=== PATIENT | male | born 1975 | race Two or more races ===

== ENCOUNTER 2021-07-06 08:20 | Outpatient (REF) | payer MEDICAID, SELFPAY ==
--- NOTE | 2021-07-06 08:34 | EMG_ITS ---
This is a 46-year-old man with several year history of bilateral upper extremity pain and numbness. His neurological examination is normal. No Tinel or Phalen sign. IMPRESSION: Rule out carpal tunnel syndrome. Nerve conduction EMG study: Early carpal tunnel syndrome on the left, otherwise normal study of the upper extremities. Normal EMG of the left C5-T1 innervated muscles. MD EDY Awad/BART / [id number]
== END 2021-07-06 08:21 | disposition home or self-care (01) ==
LOC: HO.NEURO 08:20
PROVIDERS: Visit Provider Internal Medicine
DX: R20.0 Anesthesia of skin (principal)
CPT/HCPCS: 95885; 95913

== ENCOUNTER 2021-10-03 17:13 | Outpatient (REF) | payer MEDICAID, SELFPAY ==
--- NOTE | ~2021-10-03 | XR_ITS ---
EXAMINATION: XR CERVICAL SPINE CLINICAL INFORMATION: Radiculopathy COMPARISON: None TECHNIQUE: 5 views of the cervical spine were obtained. FINDINGS: Bone alignment is normal. No fracture or dislocation is seen. There is mild degenerative spondylosis at CC4-C5 and C5-C6. Disc spaces are normal. There is right-sided neuroforaminal narrowing from bony osteophyte from C2-C3 to C4-C5. Evaluation for left-sided neuroforaminal narrowing is limited due to patient positioning. There is question of left-sided neuroforaminal narrowing from bony osteophyte at C3-C4 and C4-C5. Prevertebral soft tissues are normal.. XR/XR cervical spine 4V IMPRESSION: Mild degenerative spondylosis at C4-C5 and C5-C6. Bilateral neuroforaminal narrowing from bony osteophyte.
== END 2021-10-03 17:14 | disposition home or self-care (01) ==
LOC: HO.XRAY 17:13
PROVIDERS: PCP Internal Medicine; Visit Provider Internal Medicine
DX: M54.12 Radiculopathy, cervical region (principal)
CPT/HCPCS: 72050

== ENCOUNTER 2021-10-17 13:38 | Outpatient (REF) | payer MEDICAID, SELFPAY ==
--- NOTE | ~2021-10-17 | XR_ITS ---
EXAMINATION: XR ANKLE, LEFT CLINICAL INFORMATION: Pain. COMPARISON: None TECHNIQUE: AP, lateral, and mortise views of the left ankle. FINDINGS: Bony alignment and mineralization are normal. There are old, healed fractures of the distal left tibia and fibula, with bony remodeling. The distal aspect of a tibial intramedullary césar is noted, with intact fixator screws. No hardware failure or loosening is seen. The ankle mortise is intact. No acute fracture, dislocation or left ankle joint effusion is seen. Boehler's angle is normal. There is a very small posterior calcaneal spur. The soft tissue planes are unremarkable, without foreign body. XR/XR ankle LT min 3V IMPRESSION: There are old, healed distal left tibial and fibular fractures noted, with extensive bony remodeling. An intact left tibial intramedullary césar is noted, without hardware failure or loosening seen at the included distal aspect. No acute fracture or dislocation is seen. There is no left ankle joint effusion.
== END 2021-10-17 13:39 | disposition home or self-care (01) ==
LOC: HO.HOSX 13:38
PROVIDERS: Visit Provider Orthopaedic Surgery
DX: M54.12 Radiculopathy, cervical region (principal); M25.572 Pain in left ankle and joints of left foot; Z96.9 Presence of functional implant, unspecified
CPT/HCPCS: 73610; 99202

== ENCOUNTER → 2021-11-07 13:36 | Outpatient (BNVA) | payer MEDICAID, SELFPAY | PROVIDERS: PCP Internal Medicine; Visit Provider Nurse Practitioner Family | DX: M62.838 Other muscle spasm (principal); M54.12 Radiculopathy, cervical region; M47.816 Spondylosis without myelopathy or radiculopathy, lumbar region; M79.641 Pain in right hand; M79.642 Pain in left hand; G56.02 Carpal tunnel syndrome, left upper limb | CPT/HCPCS: 99202 ==

== ENCOUNTER 2021-11-09 10:19 | Day surgery (SDC) | payer MEDICAID, SELFPAY ==
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
[2021-11-09] VITALS (9 sets, daily range): BP systolic 117–142; BP diastolic 75–100; PULSE 58–65; RESP 16–18; TEMP 36.7–36.8; O2SAT 97–98; BMI 28.7
[2021-11-09] MEDS: Lactated Ringers 1,000 ML 100 ML IVCONT (10:47)
--- NOTE | 2021-11-09 10:47 | PC.NURSE ---
pt refuses to have hospital bracelet on wrist. bracelet is on right ankle.
[2021-11-09] MEDS: fentaNYL citrate/PF 100 MCG/2 ML VIAL 50 MCG IVPUSH (13:32)
[2021-11-09] MEDS: oxyCODONE HCl Immed Release 5 MG TABLET 10 MG PO (13:33)
--- NOTE | 2021-11-09 15:15 | P.BOP_ITS ---
Brief Operative Note Date of Service: 11/09/21 Pre-op diagnosis: Retained ortho hardware left tibia Post-op diagnosis: same Procedure: failed removal of hardware left tibia Surgeon: Shen Yi MD Anesthesia: MAC and local Was an [employer] Mdm Developer used for this Procedure?: No Estimated blood loss (mL): 5 IV fluids (mL): 250 Pathology: none sent Condition: stable Disposition: PACU
--- NOTE | 2021-11-11 14:08 | P.OP_ITS ---
Operative Note Operative Note Date of Service: 11/09/21 Narrative: Date of Service: 11/09/21 Pre-op diagnosis: Retained ortho hardware left tibia Post-op diagnosis: same Procedure: failed removal of hardware left tibia Surgeon: Shen Yi MD Anesthesia: MAC and local Was an Metal Model Maker used for this Procedure?: No Estimated blood loss (mL): 5 IV fluids (mL): 250 Pathology: none sent Condition: stable Disposition: PACU Procedure in detail: Patient was brought to the operating room placed supine on the operative table and prepped and draped in standard sterile fashion. A time-out was called to identify proper site proper procedure and proper surgeon and IV antibiotics per weight were administered. I began by injecting approximately 5 mL of 0.25% Marcaine over the distal medial tibia at the location of the screws to be removed. I then made a 1 cm incision over the palpable screw head. I then placed the appropriate screwdriver and attempted to remove the screw. This screw head was stripped and this was difficult. The decision was made not to continue as I had discussed with him that if the screw was stripped I was not going to go through heroic measures to remove it given his relatively mild symptoms. I then irrigated and closed with absorbable suture and 2 shane
== END 2021-11-09 14:58 | disposition home or self-care (01) ==
LOC: HO.SSS 10:19
PROVIDERS: PCP Internal Medicine; Visit Provider Orthopaedic Surgery
PROC: (CPT 20680; principal; 2021-11-09 12:50)
DX: T84.84XA Pain due to internal orthopedic prosthetic devices, implants and grafts, initial encounter (principal); Z47.2 Encounter for removal of internal fixation device; M79.662 Pain in left lower leg; Y79.2 Prosthetic and other implants, materials and accessory orthopedic devices associated with adverse incidents; G89.18 Other acute postprocedural pain; Y83.8 Other surgical procedures as the cause of abnormal reaction of the patient, or of later complication, without mention of misadventure at the time of the procedure; Y92.9 Unspecified place or not applicable
CPT/HCPCS: 20680; J0690; J2250; J2795; J3010

== ENCOUNTER 2021-12-10 13:36 | Emergency (ER) | payer MEDICAID, SELFPAY ==
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
[2021-12-10 13:55] VITALS: BP 131/96; PULSE 81; RESP 20; TEMP 36.7; O2SAT 96; BMI 28.8
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
[2021-12-10] MEDS: Ketorolac Tromethamine 30 MG/ML VIAL IM (15:20)
[2021-12-10] MEDS: oxyCODONE HCl Immed Release 5 MG TABLET PO (15:20)
[2021-12-10] MEDS: Diphth,Pertus(ACell),Tet Adult 0.5 ML SYRINGE IM (15:26)
== END 2021-12-10 16:32 | disposition home or self-care (01) ==
PROVIDERS: Emergency Provider Student in an Organized Health Care Education/Training Program; PCP Internal Medicine
DX: S52.125A Nondisplaced fracture of head of left radius, initial encounter for closed fracture (principal); S52.135A Nondisplaced fracture of neck of left radius, initial encounter for closed fracture; S00.81XA Abrasion of other part of head, initial encounter; S40.811A Abrasion of right upper arm, initial encounter; S80.212A Abrasion, left knee, initial encounter; S80.211A Abrasion, right knee, initial encounter; V28.4XXA Motorcycle driver injured in noncollision transport accident in traffic accident, initial encounter; Y93.89 Activity, other specified; Y92.414 Local residential or business street as the place of occurrence of the external cause; Y99.9 Unspecified external cause status
CPT/HCPCS: 29125; 73030; 73080; 90471; 90715; 96372; 99283; 99284; J1885

== ENCOUNTER 2021-12-15 11:04 | Outpatient (REF) | payer MEDICAID, SELFPAY ==
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
== END 2021-12-15 11:05 | disposition home or self-care (01) ==
LOC: HO.HOSX 11:04
PROVIDERS: Visit Provider Physician Assistant
DX: S52.122A Displaced fracture of head of left radius, initial encounter for closed fracture (principal); V28.4XXA Motorcycle driver injured in noncollision transport accident in traffic accident, initial encounter; Y93.9 Activity, unspecified; Y92.9 Unspecified place or not applicable; Y99.9 Unspecified external cause status
CPT/HCPCS: 73090; 73110; 99212

== ENCOUNTER 2021-12-19 12:56 | Outpatient (REF) | payer MEDICAID, SELFPAY ==
--- NOTE | ~2021-12-19 | XR_ITS ---
EXAMINATION: XR LUMBOSACRAL SPINE WITH OBLIQUES CLINICAL INFORMATION: Spondylosis without myelopathy or radiculopathy. COMPARISON: None TECHNIQUE: AP, both oblique, and lateral views of the lumbar spine. Lateral view of the lumbosacral junction. FINDINGS: There is grade 2 anterolisthesis of L5 on S1 with disc space narrowing at this level. Associated pars defects. Mild disc space narrowing of L4-L5. Remaining disc spaces are maintained. Alignment is otherwise maintained. Vertebral body heights are maintained. XR/XR lumbar spine 6V w bending IMPRESSION: Grade 2 anterolisthesis of L5 on S1 with associated disc space narrowing. This is associated with pars defects.
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
== END 2021-12-19 12:57 | disposition home or self-care (01) ==
LOC: HO.HOSX 12:56
PROVIDERS: Absent Provider Nurse Practitioner Family; PCP Internal Medicine; Visit Provider Physician Assistant
DX: M47.816 Spondylosis without myelopathy or radiculopathy, lumbar region (principal); M25.522 Pain in left elbow; M62.838 Other muscle spasm
CPT/HCPCS: 72114; 73080; 99212

== ENCOUNTER → 2021-12-27 08:47 | Outpatient (BNVA) | payer MEDICAID, SELFPAY | PROVIDERS: PCP Internal Medicine; Visit Provider Orthopaedic Surgery | DX: G56.02 Carpal tunnel syndrome, left upper limb (principal); R20.0 Anesthesia of skin; R20.2 Paresthesia of skin | CPT/HCPCS: 99202 ==

== ENCOUNTER 2022-01-03 07:20 | Outpatient (REF) | payer MEDICAID, SELFPAY ==
--- NOTE | ~2022-01-03 | MR_ITS ---
EXAMINATION: MR LUMBAR SPINE WITHOUT CONTRAST CLINICAL INFORMATION: M43.17 - Spondylolisthesis, lumbosacral region. Patient reports low back pain with radiculopathy. COMPARISON: Radiograph dated 12/20/2021. TECHNIQUE: MRI of the lumbar spine was obtained using routine sequences without contrast. FINDINGS: There are 5 lumbar-type vertebral bodies. Grade 2 anterolisthesis of L5 on S1 measures 9 mm. No additional spondylolisthesis. Bilateral pars defects are evident at L5, chronic in nature. No acute fractures. Vertebral body heights are normal. There is severe loss of intervertebral disc at L5-S1 with endplate edema signal and fat signal intensity, consistent with a combination of Modic type I and type II marrow changes. Endplate osteophytes are present in this region. There is more mild degenerative disc disease at L4-L5. Facet arthropathy is most notable at L4-L5. Paraspinal soft tissues are unremarkable. Imaged portions of the SI joints are normal. Conus medullaris is unremarkable, terminating at the level of T12-L1. Cauda equina are normal. T12-L1 through L3-L4: Central canal is patent. Intervertebral discs are well-preserved. Minimal facet arthropathy. No neural foraminal encroachment. L4-L5: There is a posterior disc protrusion with a small annular tear. The protrusion abuts the bilateral traversing L5 nerve roots in the subarticular zones . There is a mild annular bulge which combines with [id number]-rk-tfpnkezu facet arthropathy to produce mild bilateral neural foraminal stenosis (exiting L4 nerve roots). L5-S1: Bqsessmb-ox-zwnofw degenerative disc disease with Modic type I and type II marrow changes and grade 2 anterolisthesis of L5 on S1. Bilateral pars defects. There is a minor annular bulge posteriorly. No central canal stenoses. The unroofed disc combines the loss of disc height to produce [id number]-cu-egrdxl bilateral impingement of the exiting L5 nerve roots, left greater than right, between the disc and the pedicles. MR/MR lumbar spine wo con IMPRESSION: 1. Grade 2 anterolisthesis of L5 on S1 with paxozfyj-qq-xvffai degenerative disc disease and vneaztxn-hv-delwir bilateral neural foraminal impingement of the exiting L5 nerve roots, left greater than right. 2. Mild degenerative disc disease and xzdo-jm-jwtdbdvt facet arthropathy at L4-L5 with mild bilateral neural foraminal encroachment.
== END 2022-01-03 07:21 | disposition home or self-care (01) ==
LOC: HO.MRI 07:20
PROVIDERS: Visit Provider Nurse Practitioner Family
DX: M43.17 Spondylolisthesis, lumbosacral region (principal); M47.816 Spondylosis without myelopathy or radiculopathy, lumbar region
CPT/HCPCS: 72148

== ENCOUNTER 2022-01-04 10:00 | Outpatient (RCR) | payer MEDICAID, SELFPAY ==
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
--- NOTE | 2022-02-10 13:05 | MHC.PT.DC ---
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 Electronically signed by: Delicia Fernando PT Please sign and return to therapist. Thank you for your referral.
== END 2022-02-10 13:05 | disposition home or self-care (01) ==
LOC: HO.PTCHIC 10:00
PROVIDERS: PCP Internal Medicine; Visit Provider Nurse Practitioner Family
DX: M54.12 Radiculopathy, cervical region (principal); M47.816 Spondylosis without myelopathy or radiculopathy, lumbar region; M62.838 Other muscle spasm
CPT/HCPCS: 97012; 97014; 97110; 97140; 97161; 97164

== ENCOUNTER → 2022-01-05 15:53 | Outpatient (BNVA) | payer MEDICAID, SELFPAY | PROVIDERS: PCP Internal Medicine; Visit Provider Nurse Practitioner Family | DX: M43.00 Spondylolysis, site unspecified (principal); M43.17 Spondylolisthesis, lumbosacral region; M54.16 Radiculopathy, lumbar region; M47.816 Spondylosis without myelopathy or radiculopathy, lumbar region; M79.672 Pain in left foot; Z96.9 Presence of functional implant, unspecified | CPT/HCPCS: 99212 ==

== ENCOUNTER 2022-01-12 | Outpatient (REF) | payer MEDICAID, SELFPAY ==
--- NOTE | ~2022-01-12 | XR_ITS ---
EXAMINATION: XR ELBOW, LEFT CLINICAL INFORMATION: Pain in the elbow. COMPARISON: Multiple prior x-rays most recent 12/19/2021. TECHNIQUE: AP, lateral, and oblique views of the left elbow. FINDINGS: Redemonstration of mildly depressed and displaced intra-articular fracture of the radial head. There is some increased osseous density along the distal aspect of the fracture line indicative of at least interval partial healing of the fracture. No definite effusion. Question minimal marginal osteophytes about the humeral ulnar joint, unchanged, may reflect mild arthrosis. XR/XR elbow LT min 3V IMPRESSION: Partial healing of intra-articular radial head fracture. Possible mild osteoarthritis of the elbow joint, unchanged.
== END 2022-01-12 00:01 | disposition home or self-care (01) ==
LOC: HO.HOSX
PROVIDERS: Visit Provider Physician Assistant
DX: S52.122D Displaced fracture of head of left radius, subsequent encounter for closed fracture with routine healing (principal); V29.9XXD Motorcycle rider (driver) (passenger) injured in unspecified traffic accident, subsequent encounter
CPT/HCPCS: 73080; 99212

== ENCOUNTER 2022-02-13 | Outpatient (REF) | payer MEDICAID, SELFPAY ==
--- NOTE | ~2022-02-13 | XR_ITS ---
EXAMINATION: XR ELBOW, LEFT CLINICAL INFORMATION: Pain COMPARISON: Left elbow x-ray 01/12/2022 TECHNIQUE: AP, lateral, and oblique views of the left elbow. FINDINGS: Interval callus formation through intra-articular radial head fracture. Fracture line remains faintly visible. No other fracture identified within the left elbow. No dislocation. No joint effusion. No focal soft tissue swelling. XR/XR elbow LT min 3V IMPRESSION: Interval callus formation through intra-articular radial head fracture.
== END 2022-02-13 00:01 | disposition home or self-care (01) ==
LOC: HO.HOSX
PROVIDERS: Visit Provider Physician Assistant
DX: S52.122D Displaced fracture of head of left radius, subsequent encounter for closed fracture with routine healing (principal); Z79.899 Other long term (current) drug therapy; V29.99XD Rider (driver) (passenger) of other motorcycle injured in unspecified traffic accident, subsequent encounter
CPT/HCPCS: 73080; 99212

== ENCOUNTER 2022-05-29 17:00 | Outpatient (REF) | payer MEDICAID, SELFPAY | END 2022-05-29 17:01 | disposition home or self-care (01) | LOC: HO.HOSX 17:00 | PROVIDERS: Visit Provider Physician Assistant | DX: Z13.89 Encounter for screening for other disorder (principal) ==

== ENCOUNTER 2022-06-08 07:53 | Day surgery (SDC) | payer MEDICAID, SELFPAY ==
[2022-06-08 08:08] VITALS: BMI 28.8
--- NOTE | 2022-06-08 09:17 | MHC.SHP ---
Pre-Procedural Eval Section A Date of Service: 06/08/22 The patient is an INPATIENT: No Changes since office visit: No Cold of Flu in the past 2 weeks, No New Medical Problems, No Changes in Medication and No Patient answered all questions The History & Physical has been completed within 30 days and I have reviewed it.: Yes Section B Chief Complaint: Carpal tunnel syndrome, left upper limb Allergies: Allergies Allergy/AdvReac Type Severity Reaction Status Date / Time meloxicam AdvReac Intermediate Diarrhea Verified 02/13/22 13:23 naproxen [From Naprosyn] AdvReac Mild Nausea Verified 02/13/22 13:23 Plan I have reviewed the history and physical and performed a pertinent physical examination on my patient. No changes have occurred unless specified. Time Spent With Patient Time: Total time managing care of this patient today ____ minutes.
--- NOTE | 2022-06-08 09:18 | W.PM.OPN ---
Operative Note Operative Note Date of Service: 06/08/22 Narrative: Preop diagnosis: 1. Left Carpal tunnel syndrome Postop diagnosis: same Procedure: 1. Left Carpal tunnel release Surgeon: Antonina Riojas MD Anesthesia: local block using 1% lidocaine with epinephrine Findings: Thickened transverse carpal ligament. EBL: Less than 5 mL Specimens: None Complications: None Disposition: Brought to recovery room in stable condition Plan: Follow-up for 10-14 days for wound check and suture removal Indications: The patient is 47 years old, with left carpal tunnel syndrome that has been unresponsive to nonoperative management. The risks and benefits of operative treatment including but not limited to risk of damage to blood vessels, nerves, tendons, infection, persistent pain, persistent symptoms, or possible need for additional surgery were discussed with the patient and the patient wishes to proceed with surgery. Procedure: Once consent was obtained a local block was performed using a combination of 1% lidocaine with epinephrine. The patient was then brought back to the operating suite and placed on the operative table in supine position. The left upper extremity was prepped and draped in a standard surgical fashion. Once assured that we had a good block, a 2.0 cm longitudinal incision was made centered over the carpal tunnel. The incision was made through the skin to the subcutaneous tissues using a #15 blade. Dissection was made down to the level of the transverse carpal ligament with care being taken to protect the palmar cutaneous nerve. Once the transverse carpal ligament was clearly visualized, a longitudinal incision was made in the transverse carpal ligament 1st using a #15 blade, then using tenotomy scissors under direct visualization. Care was taken to look for and protect the motor branch of the median nerve when seen in this area. Once satisfied with our carpal tunnel release the wound was copiously irrigated with normal saline and hemostasis was obtained with a brief period of local pressure. The skin edges were reapproximated with some 5.0 nylon suture material and a sterile dressing was applied. The patient appears to have tolerated the procedure well and with no complications. All digits were well vascularized at the conclusion of the case.
[2022-06-08 09:46] VITALS: BP 153/107; PULSE 71; RESP 18
== END 2022-06-08 10:03 | disposition home or self-care (01) ==
PROVIDERS: PCP Registered Nurse; Visit Provider Orthopaedic Surgery
PROC: (CPT 64721; principal; 2022-06-08 09:10)
DX: G56.02 Carpal tunnel syndrome, left upper limb (principal); R20.0 Anesthesia of skin; R20.2 Paresthesia of skin; Z88.8 Allergy status to other drugs, medicaments and biological substances; Z87.891 Personal history of nicotine dependence
CPT/HCPCS: 64721; J0171

== ENCOUNTER → 2022-06-21 14:44 | Outpatient (BNVA) | payer MEDICAID, SELFPAY | PROVIDERS: PCP Registered Nurse; Visit Provider Orthopaedic Surgery | DX: Z13.89 Encounter for screening for other disorder (principal) ==

== ENCOUNTER 2022-08-14 12:33 | Outpatient (REF) | payer MEDICAID, SELFPAY ==
--- NOTE | ~2022-08-14 | XR_ITS ---
EXAMINATION: XR ELBOW, LEFT CLINICAL INFORMATION: M25.529 - Pain in unspecified elbow. Prior left radial head fracture. Follow-up. COMPARISON: Left elbow radiographs 02/14/2020 06/14/2021. TECHNIQUE: Left elbow is imaged in 3 views. FINDINGS: There is known intra-articular fracture radial head. Fracture line is still visible. There is no significant change in alignment. No definite depression articular surface. No dislocation or visible capsular effusion. Bony mineralization is normal. There is spurring at the coronoid process ulna. No elbow joint narrowing or erosive changes. XR/XR elbow LT min 3V IMPRESSION: Intra-articular fracture radial head still visible. No significant change in alignment. No visible capsular effusion.
== END 2022-08-14 12:34 | disposition home or self-care (01) ==
LOC: HO.XRAY 12:33
PROVIDERS: PCP Registered Nurse; Visit Provider Physician Assistant
DX: M25.522 Pain in left elbow (principal)
CPT/HCPCS: 73080

== ENCOUNTER 2022-10-02 11:07 | Outpatient (REF) | payer MEDICAID, SELFPAY | END 2022-10-02 11:08 | disposition home or self-care (01) | LOC: HO.XRAY 11:07 | PROVIDERS: PCP Registered Nurse; Visit Provider Registered Nurse | DX: Z13.89 Encounter for screening for other disorder (principal) ==

== ENCOUNTER 2022-10-16 11:03 | Outpatient (REF) | payer MEDICAID, SELFPAY | END 2022-10-16 11:04 | disposition home or self-care (01) | LOC: HO.HOSX 11:03 | PROVIDERS: Visit Provider Physician Assistant | DX: Z13.89 Encounter for screening for other disorder (principal) ==

== ENCOUNTER 2024-02-06 16:20 | Outpatient (REF) | payer MEDICAID, SELFPAY ==
[2024-02-06 18:04] LABS: MANUAL DIFF FLAG NO
[2024-02-06 18:24] LABS: Basophils Absolute Auto 0.1 X10*3/uL (0.0-0.2); Eosinophils Absolute Auto 0.1 X10*3/uL (0.0-0.4); Eosinophils Percent Auto 1.3 % (0-4); Hematocrit 42.3 % (42.0-52.0); Hemoglobin 14.1 g/dl (14.0-18.0); Imm Gran Abs Auto 0.03 X10*3/uL (0.00-0.03); Imm Gran Pct Auto 0.4 % (0.0-0.4); Lymphocytes Absolute Auto 1.6 X10*3/uL (1.2-4.9); Lymphocytes Percent Auto 23.4 % (20-40); Mean Corpuscular HGB Conc 33.3 g/dl (31.0-36.0); Mean Corpuscular Hemoglobin 27.3 pg (27.0-33.0); Monocytes Absolute Auto 0.7 X10*3/uL (0.1-1.2); Monocytes Percent Auto 9.7 % (2-11); Neutrophils Absolute Auto 4.4 x10*3/uL (2.0-8.3); Neutrophils Percent Auto 64.2 % (45-73); Platelet Count 231 X10*3/uL (160-400); Red Blood Count 5.16 X10*6/uL (4.60-5.80); Red Cell Distribution Width 14.3 % (11.0-16.0); White Blood Count 6.9 X10*3/uL (4.8-10.8)
[2024-02-06 18:39] LABS: Alanine Aminotransferase 96 U/L (0-40); Albumin Level 4.7 g/dL (3.5-5.0); Alkaline Phosphatase 58 U/L (39-117); Anion Gap 15 (12-20); Aspartate Amino Transferase 46 U/L (5-37); Bilirubin Total 0.4 mg/dL (0.0-1.0); Blood Urea Nitrogen 20 mg/dL (9-16); Calcium 10.3 mg/dL (8.4-10.2); Carbon Dioxide 29 mmol/L (22-29); Chloride 101 mmol/L (96-108); Cholesterol 280 mg/dL (<200); Estimated Glomerular Filt Rate > 60; Glucose Random 99 mg/dL (60-115); HDL Cholesterol 53 mg/dL (>40); LDL Cholesterol Calculated 167 mg/dL (<100); Potassium 3.8 mmol/L (3.3-5.1); Sodium 141 mmol/L (135-145); Total Protein 7.8 g/dL (6.5-8.0); Triglycerides 304 mg/dL (<150)
[2024-02-06 18:59] LABS: Ferritin 578 ng/mL (20-250); TSH reflex Free T4 2.23 uIU/mL (0.32-4.0)
[2024-02-07 04:20] LABS: Syphilis Screen Nonreactive (Nonreactive)
[2024-02-07 04:27] LABS: HIV AB/AG Nonreactive (Nonreactive); HIV Num 1 0.09 S/CO (0.00-0.99)
[2024-02-08 10:33] LABS: HCV Log PCR <1.18 NOT DETECTED Log IU/mL (NOT DETECTED); HepC Viral Load <15 NOT DETECTED IU/mL (NOT DETECTED)
== END 2024-02-06 16:21 | disposition home or self-care (01) ==
LOC: HO.CHCLDS 16:20
PROVIDERS: Visit Provider Internal Medicine
DX: I10 Essential (primary) hypertension (principal); Z11.3 Encounter for screening for infections with a predominantly sexual mode of transmission; F51.01 Primary insomnia; F20.9 Schizophrenia, unspecified
CPT/HCPCS: 36415; 80053; 80061; 82728; 84443; 85025; 86780; 87389; 87522

== ENCOUNTER 2024-04-11 19:23 | Emergency (ER) | payer MEDICAID, SELFPAY ==
[2024-04-11 20:13] VITALS: BP 163/107; PULSE 80; RESP 19; TEMP 36.6; O2SAT 98; BMI 30.4
--- NOTE | 2024-04-11 20:18 | ED.GENADULT ---
HPI - General Adult General Chief complaint: Wound/Laceration Stated complaint: laceration to left leg with saw Time Seen by Provider: 04/11/24 20:18 Source: patient, RN notes reviewed and old records reviewed Mode of arrival: ambulatory Limitations: no limitations History of Present Illness ED Provider: Adelita HPI narrative: 49-year-old male presents for evaluation of a laceration to his left thigh. This happened about 30 hours ago. He was cutting a stone with a [employer] saw He cleaned the area He attempted to present to an ER but the wait was too long and left without being seen His last tetanus is up-to-date There was no active bleeding Related Data Home Medications ?Medication ?Instructions ?Recorded ?Confirmed hydrochlorothiazide 50 mg tablet 1 tab PO DAILY 06/08/22 06/08/22 tramadol 50 mg tablet 1 tab PO TID PRN Back Pain 06/08/22 06/08/22 Previous Rx's ?Medication ?Instructions ?Recorded tizanidine 4 mg tablet 4 mg PO Q8H PRN muscle spasticity 12/19/22 30 days #90 tabs cephalexin 500 mg capsule 500 mg PO TID #15 caps 04/11/24 Allergies Allergy/AdvReac Type Severity Reaction Status Date / Time meloxicam AdvReac Intermediate Diarrhea Verified 04/11/24 20:14 naproxen [From Naprosyn] AdvReac Mild Nausea Verified 04/11/24 20:14 Review of Systems Constitutional: Constitutional: Denies body ache(s), Denies chills and Denies fever(s) Eyes: Eyes: Denies blurry vision Cardiovascular: Cardiovascular: Denies chest pain Respiratory: Respiratory: Denies cough Gastrointestinal: Gastrointestinal: Denies abdominal pain Integumentary/Breasts: Skin/Breast: Denies erythema and Reports wounds PMFSH Past Medical History Medical History Left leg injury Social History Social History Alcohol intake: former Year quit: 2021 Patient Tobacco Use Status: Former Tobacco user Do you have a plan to hurt others: No Plan Current occupational status: employed Current occupation: Construction/left hand Physical Exam ED Vital Signs: Vital Signs - 24 hr 04/11/24 20:13 Temperature 98 F Pulse Rate 80 Respiratory Rate 19 Blood Pressure 163/107 H Pulse Oximetry 98 Oxygen Delivery Method Room Air BMI result Body Mass Index 30.4 Const General: healthy appearing, comfortable, no acute distress, alert and awake Nutritional Appearance: well nourished Orientation/consciousness: patient oriented x3 HENMT Head: Yes normocephalic and Yes atraumatic Eyes Eyelids: Yes eyelids normal Conjunctivae: conjunctivae normal Sclerae: sclerae normal Corneas: corneas normal Pupils: Equal, round and reactive pupils present EOM: EOMs intact bilaterally Neck Neck: Yes full ROM Resp Effort & Inspection: normal respiratory effort, able to speak in complete sentences and not labored Skin Other: There is a 3 cm full-thickness laceration to the left anterior thigh. There is subcutaneous tissue visible, no vasculature or musculature visible. The wound is maybe a 0.5 cm deep. No active bleeding General skin exam: elasticity normal Neuro General: patient oriented x3 Cranial nerves: Yes Equal, round and reactive pupils present and Yes Bilaterally intact EOM present Cognition (Neuro): normal cognition Extrem Other: Moving all extremities well without any obvious deformities Medical Decision Making Medical Decision Making MDM Narrative: 49-year-old male presents for evaluation of a laceration that happened about a day and a half ago. There is no active bleeding. The wound is fairly superficial, no active bleeding. The wound was cleaned with Betadine. I approximated the wound with Steri-Strips but did not close due to risk of infection. He will be discharged with cephalexin for prophylaxis. There was no evidence of vascular, tendon or musculature involvement Differential Diagnosis Differential Diagnoses: The differential diagnosis associated with the presentation includes Laceration Puncture wound Skin tear Abrasion Discharge Plan Discharge Clinical Impression: Laceration of left thigh Patient Disposition: Home, Self-Care Instructions: Laceration Without Closure (ED) Additional Instructions: Your wound was approximated with Steri-Strips but not closed completely Keep the area clean and dry. Take the antibiotics 3 times daily for the next 5 days Follow-up with your primary doctor, return for new or worsening symptoms Prescriptions: New cephalexin 500 mg capsule 500 mg PO TID Qty: 15 0RF No Action tizanidine 4 mg tablet 4 mg PO Q8H PRN (Reason: muscle spasticity) 30 Days Qty: 90 1RF hydrochlorothiazide 50 mg tablet 1 tab PO DAILY tramadol 50 mg tablet 1 tab PO TID PRN (Reason: Back Pain) Print Language: Tamazight
[2024-04-11 20:25] VITALS: BP 163/107; PULSE 80; RESP 19; TEMP 36.6; O2SAT 98
== END 2024-04-11 21:02 | disposition home or self-care (01) ==
PROVIDERS: Emergency Provider Emergency Medicine; PCP Internal Medicine
DX: S71.112A Laceration without foreign body, left thigh, initial encounter (principal); W27.0XXA Contact with workbench tool, initial encounter; Y93.9 Activity, unspecified; Y92.9 Unspecified place or not applicable; Y99.9 Unspecified external cause status
CPT/HCPCS: 99282; 99283

== ENCOUNTER 2024-05-20 11:02 | Outpatient (REF) | payer MEDICAID, SELFPAY ==
--- NOTE | ~2024-05-20 | XR_ITS ---
CLINICAL HISTORY: worsening low back pain 3 views lumbar spine Comparison: None Findings: Normal alignment. No acute fractures or dislocation. Chronic L5 pars defect with grade 1 anterolisthesis as well as moderate spondylosis with disc space narrowing, and endplate sclerosis IMPRESSION: No acute findings. Chronic L5 pars defect with grade 1 anterolisthesis as well as moderate spondylosis with disc space narrowing, and endplate sclerosis. This document has been electronically signed by: Augie Hunter MD on 05/20/2024 20:57:37
== END 2024-05-20 11:03 | disposition home or self-care (01) ==
LOC: HO.XRAY 11:02
PROVIDERS: PCP Internal Medicine; Visit Provider Internal Medicine
DX: M54.50 Low back pain, unspecified (principal); G89.29 Other chronic pain
CPT/HCPCS: 72100

== ENCOUNTER → 2024-05-20 11:05 | Outpatient (BNV) | payer MEDICAID, SELFPAY | PROVIDERS: PCP Internal Medicine; Visit Provider Student in an Organized Health Care Education/Training Program | DX: M43.16 Spondylolisthesis, lumbar region (principal); M47.817 Spondylosis without myelopathy or radiculopathy, lumbosacral region | CPT/HCPCS: 72100 ==

== ENCOUNTER 2024-05-22 14:48 | Outpatient (REF) | payer MEDICAID, SELFPAY ==
--- NOTE | ~2024-05-22 | XR_ITS ---
CLINICAL HISTORY: NECK PAIN 7 views cervical spine Comparison: None Findings: Normal alignment. No acute fractures or dislocation. No significant degenerative change. Prevertebral soft tissues within normal limits. IMPRESSION: No acute findings. This document has been electronically signed by: Demond Norwood MD on 05/24/2024 07:48:16
== END 2024-05-22 14:49 | disposition home or self-care (01) ==
LOC: HO.XRAY 14:48
PROVIDERS: PCP Internal Medicine; Visit Provider Internal Medicine
DX: M54.2 Cervicalgia (principal)
CPT/HCPCS: 72040

== ENCOUNTER → 2024-05-22 14:53 | Outpatient (BNV) | payer MEDICAID, SELFPAY | PROVIDERS: PCP Internal Medicine; Visit Provider Specialist | DX: M54.2 Cervicalgia (principal) | CPT/HCPCS: 72040 ==